=== PATIENT | female | born 2000 | race Caucasian/White ===

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

== ENCOUNTER 2021-05-30 13:39 | Emergency (ER) | payer MEDICAID ==
[~2021-05-30] VITALS: Ht 157.5 cm; Wt 51.3 kg
[2021-05-30 13:39] VITALS: BP_SYST 129
[2021-05-30 15:45] VITALS: BP_SYST 129
== END 2021-05-30 16:08 | disposition home or self-care (01) ==
LOC: SED 13:39
DX: N93.9 Abnormal uterine and vaginal bleeding, unspecified (principal); Z88.8 Allergy status to other drugs, medicaments and biological substances
CPT/HCPCS: 81025; 99282